=== PATIENT | female | born 1980 | race Caucasian/White ===

== ENCOUNTER 2016-05-03 09:46 | Emergency (ER) | payer BC | END 2016-05-03 12:50 | disposition home or self-care (01) | LOC: ER 09:46 | DX: O20.0 Threatened abortion (principal); Z32.01 Encounter for pregnancy test, result positive; O20.8 Other hemorrhage in early pregnancy; D25.9 Leiomyoma of uterus, unspecified; Z79.899 Other long term (current) drug therapy | CPT/HCPCS: 36415; 76817; 80053; 84702; 85025; 85610; 85730; 86901; 87800 ==